=== PATIENT | female | born 1995 | race Caucasian/White ===

== ENCOUNTER 2022-10-23 15:24 | Emergency (ER) | payer OTHER ==
[~2022-10-23] VITALS: Ht 157.5 cm; Wt 62.2 kg
[2022-10-23 16:08] VITALS: BP 120/63
[2022-10-23] MEDS ORDERED: IBUP1TAB5 PO (17:18)
[2022-10-23] MEDS ORDERED: METH-1181 PO (17:18)
== END 2022-10-23 17:32 | disposition home or self-care (01) ==
LOC: ER 15:24
DX: S16.1XXA Strain of muscle, fascia and tendon at neck level, initial encounter (principal); Z79.1 Long term (current) use of non-steroidal anti-inflammatories (NSAID); Z79.899 Other long term (current) drug therapy; X58.XXXA Exposure to other specified factors, initial encounter; Y93.89 Activity, other specified; Y92.89 Other specified places as the place of occurrence of the external cause; Y99.8 Other external cause status
CPT/HCPCS: 72040